=== PATIENT | male | born 1980 | race Caucasian/White ===

== ENCOUNTER 2024-10-16 11:10 | Inpatient (IN) | payer MEDICAID ==
[~2024-10-16] VITALS: Ht 167.6 cm; Wt 101.3 kg
[2024-10-16 12:41] LABS: HEMATOCRIT. 50.4 % (42.0-52.0); HEMOGLOBIN. 16.1 g/dL (14.0-18.0); MEAN CORPUSCULAR HEMOGLOBIN 29.9 pg (28.0-32.0); MEAN CORPUSCULAR HGB CONC 31.9 g/dL (31.0-37.0); MEAN CORPUSCULAR VOLUME 93.9 fL (80.0-94.0); MEAN PLATELET VOLUME 7.7 fl (7.4-10.4); PLATELET 289 x1000/uL (130-400); RED BLOOD CELL COUNT 5.37 mill/uL (4.7-6.1); RED CELL DISTRIBUTION WIDTH 14.8 % (11.6-14.6); WHITE BLOOD COUNT 16.6 x1000/uL (4.5-11.0)
[2024-10-16 12:42] LABS: DIFFERENTIAL COMMENT 1
[2024-10-16 13:00] LABS: CHLORIDE 99 mEq/L (98-107); SODIUM 133 mEq/L (136-145)
[2024-10-16 13:01] LABS: CALCIUM 8.5 mg/dL (8.7-10.4); CARBON DIOXIDE 18 mEq/L (21-32)
[2024-10-16 13:06] LABS: CREATININE 3.1 mg/dL (0.6-1.3); GLUCOSE 90 mg/dL (70-105); UREA NITROGEN BLOOD 25 mg/dL (9-23)
[2024-10-16 13:12] LABS: PLATELET ESTIMATE NORMAL
[2024-10-16 13:48] LABS: ETHANOL BLOOD < 10 mg/dL (<10)
[2024-10-16 13:50] LABS: POTASSIUM 6.6 mEq/L (3.5-5.1)
[2024-10-16 14:18] LABS: CHLORIDE 99 mEq/L (98-107); SODIUM 133 mEq/L (136-145)
[2024-10-16 14:19] LABS: CALCIUM 7.6 mg/dL (8.7-10.4); CARBON DIOXIDE 22 mEq/L (21-32)
[2024-10-16] MEDS: CALCIUM GLUCONATE 100MG/ML 10ML VIAL IV ONE ×2 (14:20)
[2024-10-16 14:24] LABS: CREATININE 3.6 mg/dL (0.6-1.3); GLUCOSE 104 mg/dL (70-105); UREA NITROGEN BLOOD 31 mg/dL (9-23)
[2024-10-16 14:33] LABS: POTASSIUM 6.5 mEq/L (3.5-5.1)
[2024-10-16 14:34] LABS: TROPONIN I HIGH SENSITIVITY 383 ng/L (3.0-53)
[2024-10-16] MEDS: INSULIN REGULAR (HUMULIN R) 1000UNITS/10ML VIAL IV ONE (15:42)
[2024-10-16] MEDS: DEXTROSE 50% WATER 50ML SYRINGE IV ONE (15:42)
[2024-10-16 15:56] LABS: CREATINE KINASE > 39000 IU/L (46-171)
[2024-10-16 16:32] LABS: CLARITY URINE CLEAR (CLEAR); COLOR URINE YELLOW (YELLOW); GLUCOSE URINE NEGATIVE (NEGATIVE); KETONES URINE NEGATIVE (NEGATIVE); LEUKOCYTE ESTERASE URINE NEGATIVE (NEGATIVE); NITRITE URINE NEGATIVE (NEGATIVE); OCCULT BLOOD URINE 3+ (NEGATIVE); PROTEIN URINE 1+ (NEGATIVE); SPECIFIC GRAVITY URINE >=1.030 (1.005-1.030); UROBILINOGEN URINE 0.2 E.U./dL (0.2-1.0)
[2024-10-16 16:38] LABS: BACTERIA URINE 2+; SQUAMOUS EPITHELIAL CELL URINE NONE SEEN /lpf (RARE/1+); WBC URINE 0-2 /hpf (0-2); YEAST URINE NONE SEEN
[2024-10-16 16:53] LABS: *AMPHETAMINES SCREEN URINE PRESUMPTIVE POSITIVE (NEGATIVE); *BARBITURATES SCREEN URINE NEGATIVE (NEGATIVE); *BENZODIAZEPINES SCREEN URINE PRESUMPTIVE POSITIVE (NEGATIVE)
[2024-10-16 16:54] LABS: *COCAINE SCREEN URINE PRESUMPTIVE POSITIVE (NEGATIVE); CANNABINOID URINE SCREEN PRESUMPTIVE POSITIVE (NEGATIVE); ECSTASY MDMA SCREEN URINE CONF.TEST INDICATED (NEGATIVE); METHADONE URINE SCREEN NEGATIVE (NEGATIVE); OPIATES URINE SCREEN NEGATIVE (NEGATIVE); PHENCYCLIDINE URINE SCREEN NEGATIVE (NEGATIVE)
[2024-10-16] MEDS ORDERED: IPRATROPIUM/ALBUTEROL 0.5-3(2.5)MG/3ML NEB HHN PRN (18:15)
[2024-10-16] MEDS: DEXT 5%/0.45% NACL 1000ML 1,000 ML IV SCH (18:28)
[2024-10-16] MEDS: SODIUM BICARBONATE 8.4% 50MEQ/50ML SYR IV NR (18:57)
[2024-10-16] MEDS: PIPERACILLIN/TAZO 3.375G/50ML 50 ML IV NR (18:57)
[2024-10-16] MEDS: FAMOTIDINE 20MG/2ML VIAL IV SCH (18:57)
[2024-10-16] MEDS: SODIUM POLYSTYRENE SULFONATE 15 G/60 ML BOT PO NR (19:01)
[2024-10-16] MEDS: ENOXAPARIN 120MG/0.8ML SYR SUBCUT NR (19:56)
[2024-10-16 23:12] LABS: CHLORIDE 98 mEq/L (98-107); INR 1.2; POTASSIUM 5.6 mEq/L (3.5-5.1); PROTHROMBIN TIME 12.7 sec (9.6-11.0); SODIUM 133 mEq/L (136-145)
[2024-10-16 23:13] LABS: CALCIUM 7.5 mg/dL (8.7-10.4); CARBON DIOXIDE 25 mEq/L (21-32)
[2024-10-16 23:17] LABS: UREA NITROGEN BLOOD 43 mg/dL (9-23)
[2024-10-16 23:18] LABS: CREATINE KINASE MB FRACTION > 300.0 ng/mL (0.5-3.6); CREATININE 4.2 mg/dL (0.6-1.3); GLUCOSE 119 mg/dL (70-105)
[2024-10-16 23:20] LABS: ALANINE AMINOTRANSFERASE 545 IU/L (10-49); ALBUMIN 3.9 g/dL (3.2-4.8); AMMONIA < 17 uMol/L (<32); ASPARTATE AMINOTRANSFERASE > 1000 IU/L (<34); BILIRUBIN DIRECT 0.2 mg/dL (<=3.0); BILIRUBIN TOTAL 0.6 mg/dL (0.1-1.0); PHOSPHORUS 7.6 mg/dL (2.5-4.9); PROTEIN TOTAL 6.6 g/dL (6.0-8.3)
[2024-10-16 23:21] LABS: LACTIC ACID 2.5 mmol/L (0.4-2.0)
[2024-10-17 00:11] LABS: CREATINE KINASE > 39000 IU/L (46-171); TROPONIN I HIGH SENSITIVITY 509 ng/L (3.0-53)
[2024-10-17 06:52] LABS: HEMOGLOBIN. 14.9 g/dL (14.0-18.0); MEAN CORPUSCULAR HEMOGLOBIN 29.6 pg (28.0-32.0); MEAN CORPUSCULAR HGB CONC 33.2 g/dL (31.0-37.0); MEAN CORPUSCULAR VOLUME 89.3 fL (80.0-94.0); MEAN PLATELET VOLUME 8.1 fl (7.4-10.4); PLATELET 235 x1000/uL (130-400); RED BLOOD CELL COUNT 5.04 mill/uL (4.7-6.1); RED CELL DISTRIBUTION WIDTH 14.2 % (11.6-14.6); WHITE BLOOD COUNT 12.2 x1000/uL (4.5-11.0)
[2024-10-17 06:59] LABS: CREATINE KINASE MB FRACTION > 300.0 ng/mL (0.5-3.6)
[2024-10-17 07:02] LABS: DIFFERENTIAL COMMENT 1
[2024-10-17 07:28] LABS: POTASSIUM 5.4 mEq/L (3.5-5.1)
[2024-10-17 07:29] LABS: CALCIUM 6.8 mg/dL (8.7-10.4)
[2024-10-17 07:34] LABS: T4 FREE 0.83 ng/dL (0.89-1.76); THYROID STIMULATING HORMONE 1.48 uIU/mL (0.55-4.78)
[2024-10-17 08:30] LABS: CREATINE KINASE > 39000 IU/L (46-171)
[2024-10-17 08:31] LABS: TROPONIN I HIGH SENSITIVITY 350 ng/L (3.0-53)
[2024-10-17 09:10] LABS: PLATELET ESTIMATE NORMAL
[2024-10-17] MEDS: PIPERACILLIN/TAZO 3.375G/50ML 50 ML IV SCH (09:55)
[2024-10-17] MEDS: SODIUM BICARBONATE 100 MEQ in SODIUM CHLORIDE 0.45% 900 ML IV SCH (10:40)
[2024-10-17] MEDS: VANCOMYCIN 1GM/200ML PMX (BAXTER) IV SCH (13:16)
[2024-10-17] MEDS: VANCOMYCIN 1G PREMIX 200 ML IV SCH (15:19)
[2024-10-17 23:55] VITALS: BP 103/70; PULSE 105; RESP 13; TEMP 37.5
[2024-10-18] VITALS (12 sets, daily range): BP systolic 100–135; BP diastolic 63–98; PULSE 84–108; RESP 15–23; TEMP 36.3–37.4; O2SAT 92–99
[2024-10-18 05:53] LABS: HEMATOCRIT. 39.9 % (42.0-52.0); HEMOGLOBIN. 13.2 g/dL (14.0-18.0); MEAN CORPUSCULAR HEMOGLOBIN 29.5 pg (28.0-32.0); MEAN CORPUSCULAR HGB CONC 33.1 g/dL (31.0-37.0); MEAN CORPUSCULAR VOLUME 88.9 fL (80.0-94.0); MEAN PLATELET VOLUME 8.1 fl (7.4-10.4); PLATELET 177 x1000/uL (130-400); RED BLOOD CELL COUNT 4.49 mill/uL (4.7-6.1); RED CELL DISTRIBUTION WIDTH 14.3 % (11.6-14.6)
[2024-10-18 07:09] LABS: CARBON DIOXIDE 26 mEq/L (21-32); CHLORIDE 98 mEq/L (98-107)
[2024-10-18 07:10] LABS: POTASSIUM 4.3 mEq/L (3.5-5.1); SODIUM 134 mEq/L (136-145)
[2024-10-18 07:11] LABS: CALCIUM 6.7 mg/dL (8.7-10.4)
[2024-10-18 07:13] LABS: DIFFERENTIAL COMMENT 1
[2024-10-18 07:16] LABS: GLUCOSE 102 mg/dL (70-105); UREA NITROGEN BLOOD 68 mg/dL (9-23)
[2024-10-18 07:57] LABS: CREATINE KINASE > 39000 IU/L (46-171); CREATININE 6.8 mg/dL (0.6-1.3)
[2024-10-18] MEDS: CALCIUM 1250MG TABLET (500MG ELEMENTAL CALCIUM) PO SCH (09:44)
[2024-10-18] MEDS: ACETAMINOPHEN 325MG TABLET PO PRN (20:38)
[2024-10-18 21:10] LABS: PLATELET ESTIMATE NORMAL
[2024-10-19] VITALS (10 sets, daily range): BP systolic 106–137; BP diastolic 55–99; PULSE 71–90; RESP 15–29; TEMP 36.3–37; O2SAT 93–100
[2024-10-19 06:08] LABS: CARBON DIOXIDE 31 mEq/L (21-32); CHLORIDE 93 mEq/L (98-107); SODIUM 134 mEq/L (136-145)
[2024-10-19 06:09] LABS: CALCIUM 6.8 mg/dL (8.7-10.4)
[2024-10-19 06:14] LABS: GLUCOSE 88 mg/dL (70-105); UREA NITROGEN BLOOD 83 mg/dL (9-23)
[2024-10-19 06:16] LABS: PHOSPHORUS 5.9 mg/dL (2.5-4.9)
[2024-10-19 06:30] LABS: CREATINE KINASE 38891 IU/L (46-171); CREATININE 8.3 mg/dL (0.6-1.3)
[2024-10-19 06:51] LABS: HEMATOCRIT. 35.1 % (42.0-52.0); HEMOGLOBIN. 11.9 g/dL (14.0-18.0); MEAN CORPUSCULAR HEMOGLOBIN 29.9 pg (28.0-32.0); MEAN CORPUSCULAR HGB CONC 33.9 g/dL (31.0-37.0); MEAN CORPUSCULAR VOLUME 88.2 fL (80.0-94.0); MEAN PLATELET VOLUME 8.5 fl (7.4-10.4); PLATELET 153 x1000/uL (130-400); RED BLOOD CELL COUNT 3.98 mill/uL (4.7-6.1); RED CELL DISTRIBUTION WIDTH 13.9 % (11.6-14.6)
[2024-10-19 08:05] LABS: DIFFERENTIAL COMMENT 1
[2024-10-19] MEDS: SODIUM CHLORIDE 0.9% 1,000 ML IV SCH (08:30)
[2024-10-19] MEDS: ERGOCALCIFEROL 50000UNITS CAPSULE PO SCH (09:34)
[2024-10-19] MEDS ORDERED: DICLOFENAC SODIUM 1% GEL 50GM TOP SCH (10:15)
[2024-10-19] MEDS: DICLOFENAC SODIUM 1% GEL 50GM TOP SCH (13:23)
[2024-10-19 17:19] LABS: PLATELET ESTIMATE NORMAL
[2024-10-20] VITALS: BP 115/86; PULSE 68; RESP 15; TEMP 36.6; O2SAT 100
[2024-10-20 04:00] VITALS: BP 134/86; PULSE 70; RESP 18; TEMP 36.7; O2SAT 100
[2024-10-20 07:25] LABS: POTASSIUM 4.2 mEq/L (3.5-5.1)
[2024-10-20 07:27] LABS: CALCIUM 7.3 mg/dL (8.7-10.4)
[2024-10-20 07:36] LABS: CREATININE 9.7 mg/dL (0.6-1.3)
[2024-10-20 07:54] LABS: HEMATOCRIT 36.2 % (42.0-52.0); HEMOGLOBIN 12.2 g/dL (14.0-18.0); MEAN CORPUSCULAR HEMOGLOBIN 29.9 pg (28.0-32.0); MEAN CORPUSCULAR HGB CONC 33.7 g/dL (31.0-37.0); MEAN CORPUSCULAR VOLUME 88.8 fL (80.0-94.0); PLATELET 160 x1000/uL (130-400); RED BLOOD CELL COUNT 4.08 mill/uL (4.7-6.1); RED CELL DISTRIBUTION WIDTH 14.4 % (11.6-14.6); WHITE BLOOD COUNT 8.7 x1000/uL (4.5-11.0)
[2024-10-20 08:00] VITALS: BP 110/73; PULSE 86; RESP 20; TEMP 36.8; O2SAT 98
[2024-10-20 12:00] VITALS: BP 153/73; PULSE 76; RESP 18; TEMP 36.7; O2SAT 99
[2024-10-20 16:00] VITALS: BP 139/92; PULSE 74; RESP 20; TEMP 36.8; O2SAT 100
[2024-10-20 20:00] VITALS: BP 132/85; PULSE 73; RESP 21; TEMP 36.4; O2SAT 94
[2024-10-20 22:58] LABS: CREATINE KINASE 15903 IU/L (46-171)
[2024-10-21 00:02] VITALS: BP 115/74; PULSE 76; RESP 22; TEMP 36.2; O2SAT 97
[2024-10-21 04:00] VITALS: BP 130/76; PULSE 69; RESP 18; TEMP 36.8; O2SAT 97
[2024-10-21 08:00] VITALS: BP 138/81; PULSE 66; RESP 15; TEMP 36.7; O2SAT 97
[2024-10-21 09:29] LABS: BASOPHILS % 0.2 % (0.0-2.0); EOSINOPHILS % 1.8 % (0.0-5.0); HEMATOCRIT. 38.9 % (42.0-52.0); HEMOGLOBIN. 12.9 g/dL (14.0-18.0); LYMPHOCYTES % 9.1 % (20.0-50.0); MEAN CORPUSCULAR HEMOGLOBIN 29.7 pg (28.0-32.0); MEAN CORPUSCULAR HGB CONC 33.2 g/dL (31.0-37.0); MEAN CORPUSCULAR VOLUME 89.4 fL (80.0-94.0); MEAN PLATELET VOLUME 7.6 fl (7.4-10.4); MONOCYTES % 12.1 % (2.0-8.0); NEUTROPHILS % 76.8 % (40.0-76.0); PLATELET 179 x1000/uL (130-400); RED BLOOD CELL COUNT 4.35 mill/uL (4.7-6.1); RED CELL DISTRIBUTION WIDTH 14.1 % (11.6-14.6); WHITE BLOOD COUNT 7.4 x1000/uL (4.5-11.0)
[2024-10-21 09:44] LABS: POTASSIUM 4.6 mEq/L (3.5-5.1)
[2024-10-21 09:45] LABS: CALCIUM 7.7 mg/dL (8.7-10.4)
[2024-10-21 10:06] LABS: CREATININE 11.4 mg/dL (0.6-1.3)
[2024-10-21 12:00] VITALS: BP 124/79; PULSE 69; RESP 22; TEMP 36.8; O2SAT 98
[2024-10-21 16:00] VITALS: BP 118/60; PULSE 68; RESP 20; TEMP 36.7; O2SAT 98
[2024-10-21 20:00] VITALS: BP 132/85; PULSE 69; RESP 22; TEMP 37.1; O2SAT 96
[2024-10-22] VITALS: BP 132/89; PULSE 71; RESP 21; TEMP 37.3; O2SAT 94
[2024-10-22 04:00] VITALS: BP 101/55; PULSE 61; RESP 22; TEMP 36.7
[2024-10-22 08:00] VITALS: BP 136/85; PULSE 74; RESP 15; TEMP 37.1; O2SAT 100
[2024-10-22 10:25] LABS: BASOPHILS % 0.3 % (0.0-2.0); EOSINOPHILS % 2.9 % (0.0-5.0); HEMOGLOBIN. 12.2 g/dL (14.0-18.0); LYMPHOCYTES % 7.8 % (20.0-50.0); MEAN CORPUSCULAR HEMOGLOBIN 29.4 pg (28.0-32.0); MEAN CORPUSCULAR HGB CONC 33.8 g/dL (31.0-37.0); MEAN CORPUSCULAR VOLUME 87.1 fL (80.0-94.0); MEAN PLATELET VOLUME 7.8 fl (7.4-10.4); MONOCYTES % 14.8 % (2.0-8.0); NEUTROPHILS % 74.2 % (40.0-76.0); PLATELET 227 x1000/uL (130-400); RED BLOOD CELL COUNT 4.13 mill/uL (4.7-6.1); RED CELL DISTRIBUTION WIDTH 14.1 % (11.6-14.6); WHITE BLOOD COUNT 7.1 x1000/uL (4.5-11.0)
[2024-10-22 11:06] LABS: CARBON DIOXIDE 21 mEq/L (21-32); CHLORIDE 94 mEq/L (98-107); SODIUM 130 mEq/L (136-145)
[2024-10-22 11:11] LABS: GLUCOSE 120 mg/dL (70-105)
[2024-10-22 11:12] LABS: ALBUMIN 3.1 g/dL (3.2-4.8)
[2024-10-22 11:24] LABS: CREATINE KINASE 4903 IU/L (46-171)
[2024-10-22 11:26] LABS: CREATININE 12.8 mg/dL (0.6-1.3); UREA NITROGEN BLOOD 109 mg/dL (9-23)
[2024-10-22 11:30] LABS: PHOSPHORUS 8.7 mg/dL (2.5-4.9)
[2024-10-22 12:00] VITALS: BP 128/67; PULSE 76; RESP 22; TEMP 36.7; O2SAT 96
[2024-10-22 16:00] VITALS: BP 148/83; PULSE 74; RESP 22; TEMP 36.7; O2SAT 95
[2024-10-22] MEDS: CALCIUM ACETATE 667MG CAPSULE PO SCH (17:45)
[2024-10-22 20:00] VITALS: BP 139/82; PULSE 79; RESP 20; TEMP 36.4; O2SAT 94
[2024-10-22] MEDS: ONDANSETRON HCL 4MG/2ML INJ IV PRN (20:34)
[2024-10-22] MEDS: VANCOMYCIN 750MG PMX (XELLIA) 150 ML IV SCH (20:48)
[2024-10-23] VITALS (14 sets, daily range): BP systolic 128–156; BP diastolic 76–102; PULSE 66–85; RESP 18–25; TEMP 35.7–37.00296; O2SAT 94–99
[2024-10-23 07:34] LABS: CHLORIDE 97 mEq/L (98-107); POTASSIUM 5.5 mEq/L (3.5-5.1); SODIUM 132 mEq/L (136-145)
[2024-10-23 07:35] LABS: CARBON DIOXIDE 19 mEq/L (21-32)
[2024-10-23 07:36] LABS: CALCIUM 7.8 mg/dL (8.7-10.4)
[2024-10-23 07:40] LABS: GLUCOSE 99 mg/dL (70-105)
[2024-10-23 07:53] LABS: CREATINE KINASE 2915 IU/L (46-171)
[2024-10-23 08:12] LABS: UREA NITROGEN BLOOD 104 mg/dL (9-23)
[2024-10-23 08:13] LABS: CREATININE 13.7 mg/dL (0.6-1.3)
[2024-10-23 08:15] LABS: PHOSPHORUS 9.6 mg/dL (2.5-4.9); TROPONIN I HIGH SENSITIVITY < 4 ng/L (3.0-53)
[2024-10-23 08:22] LABS: BASOPHILS % 0.4 % (0.0-2.0); HEMATOCRIT. 35.3 % (42.0-52.0); HEMOGLOBIN. 11.7 g/dL (14.0-18.0); LYMPHOCYTES % 10.3 % (20.0-50.0); MEAN CORPUSCULAR HEMOGLOBIN 29.2 pg (28.0-32.0); MEAN CORPUSCULAR HGB CONC 33.1 g/dL (31.0-37.0); MEAN CORPUSCULAR VOLUME 88.3 fL (80.0-94.0); MONOCYTES % 14.5 % (2.0-8.0); NEUTROPHILS % 69.8 % (40.0-76.0); PLATELET 232 x1000/uL (130-400); RED BLOOD CELL COUNT 3.99 mill/uL (4.7-6.1); RED CELL DISTRIBUTION WIDTH 14.1 % (11.6-14.6); WHITE BLOOD COUNT 8.1 x1000/uL (4.5-11.0)
[2024-10-23 09:13] LABS: DIFFERENTIAL COMMENT 1
[2024-10-23] MEDS: CALCIUM ACETATE 667MG CAPSULE PO SCH (09:24)
[2024-10-23] MEDS: LIDOCAINE HCL 1% 10 MG/ML 10ML VIAL ONE (09:55)
[2024-10-23] MEDS: HEPARIN 1000 UNITS/ML 10ML ONE (09:56)
[2024-10-23] MEDS: MANNITOL 12.5G (25%) VIAL 50ML IV NR (11:00)
[2024-10-23 11:44] LABS: HEPATITIS B SURFACE ANTIGEN NEGATIVE (Negative)
[2024-10-23 12:05] LABS: HEPATITIS A AB IGM NEGATIVE (Negative); HEPATITIS B CORE AB IGM NEGATIVE (Negative)
[2024-10-23 12:06] LABS: HEPATITIS C AB NON REACTIVE (Neg) (Negative)
[2024-10-24] VITALS (11 sets, daily range): BP systolic 116–140; BP diastolic 67–91; PULSE 71–90; RESP 13–21; TEMP 36.4–37.3; O2SAT 94–98
[2024-10-24 07:29] LABS: POTASSIUM 5.9 mEq/L (3.5-5.1)
[2024-10-24 07:30] LABS: CALCIUM 7.8 mg/dL (8.7-10.4)
[2024-10-24 07:33] LABS: HEMATOCRIT 35.8 % (42.0-52.0); HEMOGLOBIN 11.9 g/dL (14.0-18.0); MEAN CORPUSCULAR HEMOGLOBIN 29.8 pg (28.0-32.0); MEAN CORPUSCULAR HGB CONC 33.2 g/dL (31.0-37.0); MEAN CORPUSCULAR VOLUME 89.8 fL (80.0-94.0); PLATELET 285 x1000/uL (130-400); RED BLOOD CELL COUNT 3.99 mill/uL (4.7-6.1); RED CELL DISTRIBUTION WIDTH 13.9 % (11.6-14.6); WHITE BLOOD COUNT 9.2 x1000/uL (4.5-11.0)
[2024-10-24] MEDS: ALBUTEROL (0.083%) 2.5MG/3ML NEB HHN NR (07:45)
[2024-10-24 08:40] LABS: CREATININE 13.1 mg/dL (0.6-1.3)
[2024-10-24 08:42] LABS: PHOSPHORUS 8.6 mg/dL (2.5-4.9)
[2024-10-24] MEDS: FUROSEMIDE 100MG/10ML VIAL IV NR (10:01)
[2024-10-24] MEDS: SODIUM POLYSTYRENE SULFONATE 15 G/60 ML BOT PO NR (10:02)
[2024-10-24] MEDS: SODIUM BICARBONATE 8.4% 50MEQ/50ML SYR IV NR (10:26)
[2024-10-24] MEDS: DEXTROSE 50% WATER 50ML SYRINGE IV NR (10:26)
[2024-10-24] MEDS: INSULIN REGULAR (HUMULIN R) 1000UNITS/10ML VIAL IV NR (10:28)
[2024-10-24] MEDS: CALCIUM CHLORIDE 1GM/10ML SYR IV NR (10:37)
[2024-10-24 12:46] LABS: POTASSIUM 5.6 mEq/L (3.5-5.1)
[2024-10-24] MEDS: ENOXAPARIN 30MG/0.3ML SYR SUBCUT SCH (15:20)
[2024-10-25] VITALS (10 sets, daily range): BP systolic 112–146; BP diastolic 71–114; PULSE 80–98; RESP 14–20; TEMP 36.55848–36.9; O2SAT 94–99
[2024-10-25 06:29] LABS: BASOPHILS % 0.3 % (0.0-2.0); EOSINOPHILS % 3.9 % (0.0-5.0); HEMATOCRIT. 32.9 % (42.0-52.0); HEMOGLOBIN. 11.2 g/dL (14.0-18.0); LYMPHOCYTES % 9.2 % (20.0-50.0); MEAN CORPUSCULAR HEMOGLOBIN 29.5 pg (28.0-32.0); MEAN CORPUSCULAR HGB CONC 34.2 g/dL (31.0-37.0); MEAN PLATELET VOLUME 7.9 fl (7.4-10.4); NEUTROPHILS % 77.6 % (40.0-76.0); PLATELET 301 x1000/uL (130-400); RED BLOOD CELL COUNT 3.82 mill/uL (4.7-6.1); RED CELL DISTRIBUTION WIDTH 14.1 % (11.6-14.6); WHITE BLOOD COUNT 9.4 x1000/uL (4.5-11.0)
[2024-10-25 07:14] LABS: POTASSIUM 5.4 mEq/L (3.5-5.1)
[2024-10-25 07:15] LABS: CALCIUM 8.5 mg/dL (8.7-10.4)
[2024-10-25 07:43] LABS: CREATININE 10.5 mg/dL (0.6-1.3)
[2024-10-25] MEDS: SODIUM ZIRCONIUM CYCLOSILICATE 10GM/PACKET PO NR (08:52)
[2024-10-26] VITALS (15 sets, daily range): BP systolic 119–148; BP diastolic 69–88; PULSE 74–97; RESP 15–20; TEMP 36.3918–37.2; O2SAT 93–100
[2024-10-26 09:58] LABS: HEMOGLOBIN. 10.7 g/dL (14.0-18.0); MEAN CORPUSCULAR HEMOGLOBIN 29.3 pg (28.0-32.0); MEAN CORPUSCULAR HGB CONC 33.4 g/dL (31.0-37.0); MEAN CORPUSCULAR VOLUME 87.7 fL (80.0-94.0); MEAN PLATELET VOLUME 7.7 fl (7.4-10.4); PLATELET 391 x1000/uL (130-400); RED BLOOD CELL COUNT 3.65 mill/uL (4.7-6.1); RED CELL DISTRIBUTION WIDTH 14.2 % (11.6-14.6); WHITE BLOOD COUNT 11.4 x1000/uL (4.5-11.0)
[2024-10-26 10:05] LABS: DIFFERENTIAL COMMENT 1
[2024-10-26 10:28] LABS: POTASSIUM 6.1 mEq/L (3.5-5.1)
[2024-10-26 10:29] LABS: CALCIUM 8.3 mg/dL (8.7-10.4)
[2024-10-26 10:42] LABS: CREATININE 12.1 mg/dL (0.6-1.3)
[2024-10-26] MEDS: SODIUM BICARBONATE 8.4% 50MEQ/50ML SYR IV NR (11:45)
[2024-10-26] MEDS: DEXTROSE 50% WATER 50ML SYRINGE IV NR (12:09)
[2024-10-26] MEDS: INSULIN REGULAR (HUMULIN R) 1000UNITS/10ML VIAL IV NR (12:09)
[2024-10-26] MEDS: SODIUM ZIRCONIUM CYCLOSILICATE 10GM/PACKET PO NR (12:19)
[2024-10-26 15:47] LABS: POTASSIUM 3.8 mEq/L (3.5-5.1)
[2024-10-26 20:35] LABS: POTASSIUM 5.5 mEq/L (3.5-5.1)
[2024-10-26 20:37] LABS: CALCIUM 8.6 mg/dL (8.7-10.4)
[2024-10-26 20:42] LABS: CREATININE 8.9 mg/dL (0.6-1.3)
[2024-10-26] MEDS: MELATONIN 3MG TABLET PO NR (21:34)
[2024-10-26 21:52] LABS: PLATELET ESTIMATE NORMAL
[2024-10-27] VITALS (15 sets, daily range): BP systolic 114–166; BP diastolic 60–105; PULSE 75–93; RESP 14–21; TEMP 36.55848–37.1; O2SAT 94–100
[2024-10-27 06:43] LABS: BASOPHILS % 0.6 % (0.0-2.0); EOSINOPHILS % 3.2 % (0.0-5.0); HEMATOCRIT. 30.2 % (42.0-52.0); HEMOGLOBIN. 10.2 g/dL (14.0-18.0); LYMPHOCYTES % 8.1 % (20.0-50.0); MEAN CORPUSCULAR HEMOGLOBIN 29.5 pg (28.0-32.0); MEAN CORPUSCULAR HGB CONC 33.7 g/dL (31.0-37.0); MEAN CORPUSCULAR VOLUME 87.7 fL (80.0-94.0); MEAN PLATELET VOLUME 7.9 fl (7.4-10.4); MONOCYTES % 8.3 % (2.0-8.0); NEUTROPHILS % 79.8 % (40.0-76.0); PLATELET 392 x1000/uL (130-400); RED BLOOD CELL COUNT 3.45 mill/uL (4.7-6.1); RED CELL DISTRIBUTION WIDTH 13.8 % (11.6-14.6); WHITE BLOOD COUNT 10.6 x1000/uL (4.5-11.0)
[2024-10-27] MEDS: SODIUM ZIRCONIUM CYCLOSILICATE 10GM/PACKET PO NR (09:49)
[2024-10-28] VITALS (24 sets, daily range): BP systolic 99–140; BP diastolic 68–100; PULSE 70–101; RESP 11–24; TEMP 36.4–37.5; O2SAT 97–100
[2024-10-28] MEDS: MELATONIN 3MG TABLET PO NR (02:41)
[2024-10-28 07:48] LABS: HEMATOCRIT 29.4 % (42.0-52.0); HEMOGLOBIN 10.1 g/dL (14.0-18.0); MEAN CORPUSCULAR HGB CONC 34.4 g/dL (31.0-37.0); MEAN CORPUSCULAR VOLUME 87.1 fL (80.0-94.0); PLATELET 449 x1000/uL (130-400); RED BLOOD CELL COUNT 3.38 mill/uL (4.7-6.1); RED CELL DISTRIBUTION WIDTH 13.9 % (11.6-14.6); WHITE BLOOD COUNT 10.6 x1000/uL (4.5-11.0)
[2024-10-28 07:52] LABS: PARTIAL THROMBOPLASTIN TIME 29.1 sec (23.4-31.0); PROTHROMBIN TIME 11.4 sec (9.6-11.0)
[2024-10-28 08:12] LABS: CARBON DIOXIDE 27 mEq/L (21-32); CHLORIDE 101 mEq/L (98-107); POTASSIUM 5.1 mEq/L (3.5-5.1); SODIUM 138 mEq/L (136-145)
[2024-10-28 08:13] LABS: CALCIUM 8.8 mg/dL (8.7-10.4)
[2024-10-28 08:18] LABS: UREA NITROGEN BLOOD 65 mg/dL (9-23)
[2024-10-28 08:20] LABS: PHOSPHORUS 6.4 mg/dL (2.5-4.9)
[2024-10-28 08:46] LABS: CREATININE 7.6 mg/dL (0.6-1.3)
[2024-10-28 09:22] LABS: GLUCOSE 94 mg/dL (70-105)
[2024-10-28] MEDS ORDERED: LIDOCAINE HCL 1% 10 MG/ML 10ML VIAL ONE (09:26)
[2024-10-28] MEDS ORDERED: CEFAZOLIN 1000MG PREMIX 50 ML IV ONE (09:34)
[2024-10-28] MEDS: CEFAZOLIN 1000MG PREMIX 50 ML IV ONE (09:45)
[2024-10-28] MEDS ORDERED: FENTANYL CITRATE/PF 50MCG/ML 2ML VIAL ONE (09:46)
[2024-10-28] MEDS ORDERED: CEFAZOLIN 1000MG PREMIX 50 ML IV NR (10:00)
[2024-10-28] MEDS: FENTANYL CITRATE/PF 50MCG/ML 2ML VIAL IV ONE (17:41)
[2024-10-29] VITALS: BP 123/77; PULSE 103; RESP 22; TEMP 37.6; O2SAT 98
[2024-10-29 04:00] VITALS: BP 107/64; PULSE 96; RESP 22; TEMP 37; O2SAT 96
[2024-10-29 07:43] LABS: CALCIUM 8.9 mg/dL (8.7-10.4); CARBON DIOXIDE 26 mEq/L (21-32); CHLORIDE 103 mEq/L (98-107); HEMATOCRIT 28.5 % (42.0-52.0); HEMOGLOBIN 9.6 g/dL (14.0-18.0); MEAN CORPUSCULAR HEMOGLOBIN 29.7 pg (28.0-32.0); MEAN CORPUSCULAR HGB CONC 33.6 g/dL (31.0-37.0); MEAN CORPUSCULAR VOLUME 88.5 fL (80.0-94.0); PLATELET 450 x1000/uL (130-400); POTASSIUM 4.6 mEq/L (3.5-5.1); RED BLOOD CELL COUNT 3.22 mill/uL (4.7-6.1); RED CELL DISTRIBUTION WIDTH 13.8 % (11.6-14.6); SODIUM 140 mEq/L (136-145); WHITE BLOOD COUNT 9.5 x1000/uL (4.5-11.0)
[2024-10-29 07:49] LABS: GLUCOSE 100 mg/dL (70-105); UREA NITROGEN BLOOD 54 mg/dL (9-23)
[2024-10-29 07:51] LABS: PHOSPHORUS 6.5 mg/dL (2.5-4.9)
[2024-10-29 08:00] VITALS: BP 120/76; PULSE 91; RESP 20; TEMP 36.9; O2SAT 97
[2024-10-29 08:45] LABS: CREATININE 6.4 mg/dL (0.6-1.3)
[2024-10-29 12:00] VITALS: BP 115/71; PULSE 98; RESP 28; TEMP 36.8; O2SAT 96
[2024-10-29 15:43] VITALS: BP 115/71; PULSE 98; TEMP 98.3; O2SAT 98
[2024-10-29 16:00] VITALS: BP 127/81; PULSE 97; RESP 26; TEMP 36.6; O2SAT 98
== END 2024-10-29 17:00 | disposition home health service (06) | DRG 812 ==
LOC: ER 11:10 → EDBEDREQ 13:37 → EDBEDREQSVC 15:26 → EDBEDREQTM 15:26 → 5EST 10-17 15:06 → EDBD 10-17 15:06 → 3WST 10-20 06:37
PROVIDERS: ADMIT Hospitalist; ATTEND Hospitalist
PROC: 05HM33Z Insertion of Infusion Device into Right Internal Jugular Vein, Percutaneous Approach (ICD-10-PCS; principal; 2024-10-23)
PROC: 5A1D70Z Performance of Urinary Filtration, Intermittent, Less than 6 Hours Per Day (ICD-10-PCS; 2024-10-23)
PROC: B543ZZA Ultrasonography of Right Jugular Veins, Guidance (ICD-10-PCS; 2024-10-23)
PROC: 5A1D70Z Performance of Urinary Filtration, Intermittent, Less than 6 Hours Per Day (ICD-10-PCS; 2024-10-24)
PROC: 5A1D70Z Performance of Urinary Filtration, Intermittent, Less than 6 Hours Per Day (ICD-10-PCS; 2024-10-26)
PROC: 5A1D70Z Performance of Urinary Filtration, Intermittent, Less than 6 Hours Per Day (ICD-10-PCS; 2024-10-27)
PROC: 0JH63XZ Insertion of Tunneled Vascular Access Device into Chest Subcutaneous Tissue and Fascia, Percutaneous Approach (ICD-10-PCS; 2024-10-28)
PROC: 02HV33Z Insertion of Infusion Device into Superior Vena Cava, Percutaneous Approach (ICD-10-PCS; 2024-10-28)
PROC: B548ZZA Ultrasonography of Superior Vena Cava, Guidance (ICD-10-PCS; 2024-10-28)
PROC: B5181ZA Fluoroscopy of Superior Vena Cava using Low Osmolar Contrast, Guidance (ICD-10-PCS; 2024-10-28)
PROC: 05PY33Z Removal of Infusion Device from Upper Vein, Percutaneous Approach (ICD-10-PCS; 2024-10-28)
PROC: 5A1D70Z Performance of Urinary Filtration, Intermittent, Less than 6 Hours Per Day (ICD-10-PCS; 2024-10-28)
DX: T42.4X1A Poisoning by benzodiazepines, accidental (unintentional), initial encounter (principal); R65.20 Severe sepsis without septic shock; I21.A1 Myocardial infarction type 2; A41.9 Sepsis, unspecified organism; G92.8 Other toxic encephalopathy; E87.20 Acidosis, unspecified; M62.82 Rhabdomyolysis; E83.51 Hypocalcemia; E83.39 Other disorders of phosphorus metabolism; T40.411A Poisoning by fentanyl or fentanyl analogs, accidental (unintentional), initial encounter; D64.9 Anemia, unspecified; S30.0XXA Contusion of lower back and pelvis, initial encounter; T40.721A Poisoning by synthetic cannabinoids, accidental (unintentional), initial encounter; T40.5X1A Poisoning by cocaine, accidental (unintentional), initial encounter; N17.9 Acute kidney failure, unspecified; F14.10 Cocaine abuse, uncomplicated; F10.129 Alcohol abuse with intoxication, unspecified; E87.5 Hyperkalemia; F12.10 Cannabis abuse, uncomplicated; F11.10 Opioid abuse, uncomplicated; F13.10 Sedative, hypnotic or anxiolytic abuse, uncomplicated; Y90.9 Presence of alcohol in blood, level not specified; X58.XXXA Exposure to other specified factors, initial encounter; N18.9 Chronic kidney disease, unspecified; Z59.00 Homelessness unspecified; Z99.2 Dependence on renal dialysis; Y93.89 Activity, other specified; Y92.89 Other specified places as the place of occurrence of the external cause; Y99.8 Other external cause status
CPT/HCPCS: 36415; 36556; 36558; 36589; 71045; 73560; 73590; 73600; 73721; 76770; 76881; 76937; 77001; 80048; 80061; 80076; 80202; 80305; 80307; 80320; 80329; 81003; 82040; 82140; 82306; 82550; 82553; 82962; 83036; 83605; 83735; 84100; 84132; 84134; 84145; 84439; 84443; 84484; 84550; 85025; 85027; 86705; 86706; 86709; 87340; 90935; 93005; 93306; 93970; 97162; 97166; 99152; 99153; 99285; A4606; A6261; C1750; C1752; C1769; C1893; J0610; J0690; J1642; J1644; J1650; J1815; J1940; J2003; J2150; J2405; J2543; J3010; J3370; J3490; J7030; J7070; G0480; G0500